=== PATIENT | male | born 1980 | race Caucasian/White ===

== ENCOUNTER 2017-10-11 19:57 | Emergency (ER) | payer OTHER ==
[2017-10-11 20:04] VITALS: BMI 45.4
[2017-10-11 20:06] VITALS: O2SAT 98
[2017-10-11] MEDS ORDERED: Oxycodone/Acetaminophen 5/325 mg Tab PO STA (20:37)
[2017-10-11 21:16] LABS: BASO # 0.02 K/mm3 (0.0-2.0); BASO % 0.2 % (0.0-3.0); EOS # 0.2 (0.0-0.7); EOS % 2.6 % (1.5-5.0); GRAN # 5.15 (1.4-6.5); GRAN % 60.9 % (50.0-68.0); HEMOGLOBIN 12.8 g/dL (14.0-18.0); LYMPH # 2.6 (1.2-3.4); LYMPH % 30.3 % (22.0-35.0); MEAN CELL VOLUME 78.1 fl (80.0-105.0); MEAN CORPUSCULAR HEMOGLOBIN 26.9 pg (25.0-35.0); MEAN CORPUSCULAR HGB CONC 34.5 g/dl (31.0-37.0); MEAN PLATELET VOLUME 9.7 fl (7.0-11.0); MONO # 0.5 (0.1-0.6); RBC 4.75 10^6/uL (3.5-6.1); RED CELL DISTRIBUTION WIDTH 13.6 % (11.5-14.5); WHITE BLOOD COUNT 8.5 10^3/ul (4.5-11.0)
[2017-10-11 21:20] LABS: ALB/GLOB RATIO 1.3 (1.1-1.8); ALBUMIN 3.9 g/dL (3.0-4.8); ALT/SGPT 29 U/L (7-56); AST/SGOT 18 U/L (17-59); BLOOD UREA NITROGEN 11 mg/dL (7-21); CALCIUM 9.1 mg/dL (8.4-10.5); GFR AFRICAN-AMERICAN > 60; GFR NON-AFRICAN AMERICAN > 60
[2017-10-11 21:25] LABS: INR 1.04 (0.93-1.08); PARTIAL THROMBOPLASTIN TIME 31.2 Seconds (25.1-36.5); PROTHROMBIN TIME 11.9 SECONDS (9.4-12.5)
--- NOTE | 2017-10-11 21:47 | ED PDOC ---
Arrival/HPI <Willis Mark - Last Filed: 10/11/17 21:54> - General Historian: Patient <Adriana Ludwig - Last Filed: 10/12/17 01:59> - General Chief Complaint: Dental Pain Time Seen by Provider: 10/11/17 20:20 - History of Present Illness Narrative History of Present Illness (Text): 10/11/17 21:38 37yo morbidly male with pmhx of diabetes and hypertension present with complaint of right sided upper toothache and facial swelling. States he saw a Dentist today and was given Clindamycin 300mg. She took one tab of it and came to ED because he was told by the Dentist to go to ED if the swelling persist. He otherwise denies any other complaint. (Adriana Ludwig) Past Medical History - Provider Review Nursing Documentation Reviewed: Yes - Infectious Disease Hx of Infectious Diseases: None - Cardiac Hx Cardiac Disorders: Yes Hx Hypertension: Yes - Pulmonary Hx Respiratory Disorders: No - Neurological Hx Neurological Disorder: No - HEENT Hx HEENT Disorder: No - Renal Hx Renal Disorder: No - Endocrine/Metabolic Hx Endocrine Disorders: Yes Hx Diabetes Mellitus Type 2: Yes - Hematological/Oncological Hx Blood Disorders: No - Integumentary Hx Dermatological Disorder: No - Musculoskeletal/Rheumatological Hx Musculoskeletal Disorders: No - Gastrointestinal Hx Gastrointestinal Disorders: No - Genitourinary/Gynecological Hx Genitourinary Disorders: No - Psychiatric Hx Psychophysiologic Disorder: No Hx Substance Use: No - Anesthesia Hx Anesthesia: No Hx Anesthesia Reactions: No Hx Malignant Hyperthermia: No - Suicidal Assessment Feels Threatened In Home Enviroment: No <Adriana Ludwig - Last Filed: 10/12/17 01:59> Family/Social History - Physician Review Nursing Documentation Reviewed: Yes Family/Social History: Unknown Family HX Smoking Status: Heavy Smoker > 10 Cigarettes Daily Hx Alcohol Use: No Hx Substance Use: No Hx Substance Use Treatment: No <Adriana Ludwig - Last Filed: 10/12/17 01:59> Allergies/Home Meds <Willis Mark - Last Filed: 10/11/17 21:54> <Adriana Ludwig - Last Filed: 10/12/17 01:59> Allergies/Adverse Reactions: Allergies No Known Allergies Allergy (Verified 10/11/17 20:04) Home Medications: Home Meds Medication Instructions Recorded Confirmed Enalapril Maleate [Enalapril] 5 mg PO DAILY 02/24/15 10/11/17 metFORMIN [glucOPHAGE] 500 mg PO BID 10/11/17 10/11/17 Review of Systems - Physician Review All systems were reviewed & negative as marked: Yes - Review of Systems Constitutional: Normal Eyes: Normal ENT: Other (Right upper toothache) Respiratory: Normal Cardiovascular: Normal Gastrointestinal: Normal Genitourinary Male: Normal Musculoskeletal: Normal Skin: Normal Neurological: Normal Endocrine: Normal Hemo/Lymphatic: Normal Psychiatric: Normal <Adriana Ludwig A - Last Filed: 10/12/17 01:59> Physical Exam Vital Signs Reviewed: Yes Temperature: Afebrile Blood Pressure: Normal Pulse: Regular Respiratory Rate: Normal Appearance: Positive for: Well-Appearing, Non-Toxic, Comfortable Pain Distress: None Mental Status: Positive for: Alert and Oriented X 3 Finger Stick Blood Glucose: 195 - Systems Exam Head: Present: Atraumatic, Normocephalic Pupils: Present: PERRL Extroacular Muscles: Present: EOMI Conjunctiva: Present: Normal Mouth: Present: Moist Mucous Membranes, Normal Teeth (Mild swelling of right upper gingival/gum noted with overlaying cheek swelling) Neck: Present: Normal Range of Motion Respiratory/Chest: Present: Clear to Auscultation, Good Air Exchange. No: Respiratory Distress, Accessory Muscle Use Cardiovascular: Present: Regular Rate and Rhythm, Normal S1, S2. No: Murmurs Abdomen: No: Tenderness, Distention, Peritoneal Signs Back: Present: Normal Inspection Upper Extremity: Present: Normal Inspection. No: Cyanosis, Edema Lower Extremity: Present: Normal Inspection. No: Edema Neurological: Present: GCS=15, CN II-XII Intact, Speech Normal Skin: Present: Warm, Dry, Normal Color. No: Rashes Psychiatric: Present: Alert, Oriented x 3, Normal Insight, Normal Concentration <Adrinaa Ludwig A - Last Filed: 10/12/17 01:59> Vital Signs Temp Pulse Resp BP Pulse Ox 10/11/17 22:37 98.7 F 80 18 124/69 98 10/11/17 20:05 100.3 F H 96 H 20 148/87 98 Medical Decision Making <Willis Mark - Last Filed: 10/11/17 21:54> <Adriana Ludwig A - Last Filed: 10/12/17 01:59> ED Course and Treatment: 10/12/17 01:57 Pt presented for stated history. He was afebrile on re evaluation of his VS. Lab does not show any leukocysotis. A dose of Clindamycin IV was given in ED. PT already have Clindamycin that was given by his Dentist. He was DC home and advised to continue his medication as directed. Percocet #9tabs. was give for pain control. Referred to his Dentist. TRT ED for any new symptoms. (Adriana Ludwig A) - Lab Interpretations Lab Results: 10/11/17 20:58 10/11/17 20:58 Lab Results 10/11/17 20:58: PT 11.9, INR 1.04, APTT 31.2 10/11/17 20:58: Sodium 142, Potassium 3.7, Chloride 105, Carbon Dioxide 24, Anion Gap 17, BUN 11, Creatinine 0.7 L, Est GFR ( Amer) > 60, Est GFR ( Non-Af Amer) > 60, Random Glucose 208 H, Calcium 9.1, Total Bilirubin 0.2, AST 18, ALT 29, Alkaline Phosphatase 80, Total Protein 6.9, Albumin 3.9, Globulin 3.0, Albumin/Globulin Ratio 1.3 10/11/17 20:58: WBC 8.5 D, RBC 4.75, Hgb 12.8 L, Hct 37.1 L, MCV 78.1 L, MCH 26.9, MCHC 34.5, RDW 13.6, Plt Count 252, MPV 9.7, Gran % 60.9, Lymph % (Auto) 30.3, Jones % (Auto) 6.0, Eos % (Auto) 2.6, Baso % (Auto) 0.2, Gran # 5.15, Lymph # (Auto) 2.6, Jones # (Auto) 0.5, Eos # (Auto) 0.2, Baso # (Auto) 0.02 10/11/17 20:14: POC Glucose (mg/dL) 195 H - Medication Orders Current Medication Orders: Discontinued Medications Clindamycin Phosphate 900 mg/ (Sodium Chloride) 106 mls @ 106 mls/hr IVPB STAT STA PRN Reason: Protocol Stop: 10/11/17 21:36 Last Admin: 10/11/17 21:07 Dose: 106 mls/hr eMAR Start Stop Document 10/11/17 21:07 CNR (Rec: 10/11/17 21:07 CNR [id number]) Intravenous Solution Start Date 10/11/17 Start Time 21:07 End Date 10/11/17 End time 22:07 Total Infusion Time 60 Oxycodone/Acetaminophen (Percocet 5/325 Mg Tab) 1 tab PO STAT STA Stop: 10/11/17 20:38 Last Admin: 10/11/17 21:07 Dose: 1 tab MAR Pain Assessment Document 10/11/17 21:07 CNR (Rec: 10/11/17 21:07 CNR [id number]) Pain Reassessment Is this a pain reassessment? No - PA / [employer] / Resident Statement / has reviewed & agrees with the documentation as recorded. <Willis Mark - Last Filed: 10/11/17 21:54> Disposition/Present on Arrival <Willis Mark - Last Filed: 10/11/17 21:54> - Present on Arrival Any Indicators Present on Arrival: No History of DVT/PE: No History of Uncontrolled Diabetes: No Urinary Catheter: No History of Decub. Ulcer: No History Surgical Site Infection Following: None - Disposition Have Diagnosis and Disposition been Completed?: Yes Disposition Time: 22:35 Patient Plan: Discharge <Adriana Ludwig - Last Filed: 10/12/17 01:59> - Disposition Diagnosis: Dental abscess Disposition: HOME/ ROUTINE Condition: STABLE Discharge Instructions (ExitCare): Tooth Abscess (DC) Additional Instructions: Continue with your medication as was directed Follow up with oral surgeon Return to ED for any new or worsening symptoms Prescriptions: oxyCODONE/Acetaminophen [Percocet 5/325 mg Tab] 1 ea PO Q6 #9 tab Referrals: Ion Mccormick MD [Primary Care Provider] - Follow up with primary Forms: [employer] (Sinhala)
[2017-10-11 22:38] VITALS: BP 124/69; PULSE 80; RESP 18; TEMP 98.7
== END 2017-10-11 22:43 | disposition home or self-care (01) ==
LOC: ED 19:57
DX: K04.7 Periapical abscess without sinus (principal); E11.9 Type 2 diabetes mellitus without complications; I10 Essential (primary) hypertension; F17.210 Nicotine dependence, cigarettes, uncomplicated